=== PATIENT | female | born 1945 | race Hispanic/Latino ===

== ENCOUNTER 2017-11-23 06:21 | Emergency (ER) | payer MEDICARE ==
[2017-11-23 07:36] LABS: #Eosinphils 0.1 thou/uL (0.0-0.7); #Monocytes 0.5 thou/uL (0.11-0.59); #Neutrophils 2.4 thou/uL (1.40-6.50); %Basophils 0.3 % (0.0-1.0); %Eosinophils 1.7 % (0.0-10.0); %Lymphocytes 24.9 % (21.0-51.0); %Monocytes 12.1 % (0.0-10.0); Mean Platelet Volume 9.4 fL (7.4-10.4); Red Blood Cell (RBC) Count 4.18 mill/uL (4.20-5.40)
[2017-11-23 07:50] LABS: ALT (SGPT) 17 U/L (8-55); AST (SGOT) 20 U/L (5-34); Alkaline Phosphatase 76 U/L (40-150); Anion Gap 13 mmol/L (10-20); BUN (Urea Nitrogen) 13 mg/dL (9.8-20.1); Bilirubin, Total 0.2 mg/dL (0.2-1.2); Calc. Creatinine Clearance 0 mL/min (70-130); Calcium 9.1 mg/dL (7.8-10.44); Carbon Dioxide 24 mmol/L (23-31); Chloride 105 mmol/L (98-107); Estimated GFR-MDRD 76; Lipase 39 U/L (8-78)
[2017-11-23 07:54] LABS: Troponin I Less than 0.010 ng/mL (< 0.028)
--- NOTE | 2017-11-23 07:55 | RAD ---
SINGLE VIEW CHEST: Date: 11/23/17 COMPARISON: 05/08/17. HISTORY: Asthma exacerbation with dyspnea. FINDINGS: Single view of the chest shows a normal sized cardiomediastinal silhouette. There is no evidence of c onsolidation, mass, or pleural effusion. The bones are unremarkable. IMPRESSION: No evidence of acute cardiopulmonary disease. POS: [facility]
[2017-11-23] MEDS ORDERED: Dexamethasone 10 MG/ML VIAL ONE (08:48)
== END 2017-11-23 09:09 | disposition home or self-care (01) ==
LOC: ERS 06:21
DX: J45.901 Unspecified asthma with (acute) exacerbation (principal); E78.5 Hyperlipidemia, unspecified; E11.9 Type 2 diabetes mellitus without complications; I10 Essential (primary) hypertension; F41.9 Anxiety disorder, unspecified; F32.9 Major depressive disorder, single episode, unspecified; Z79.84 Long term (current) use of oral hypoglycemic drugs; Z79.899 Other long term (current) drug therapy
CPT/HCPCS: 36415; 71010; 80053; 82553; 83690; 83880; 84484; 85025; 85379; 93005; 96374; J1100; J7620

== ENCOUNTER 2018-05-20 10:51 | Outpatient (CLI) | payer MEDICARE | END 2018-05-20 10:52 | disposition home or self-care (01) | LOC: BICMAMMO 10:51 | PROVIDERS: ATTEND Family Medicine | DX: Z12.31 Encounter for screening mammogram for malignant neoplasm of breast (principal); Z80.3 Family history of malignant neoplasm of breast; R92.1 Mammographic calcification found on diagnostic imaging of breast | CPT/HCPCS: 77063; 77067 ==

== ENCOUNTER 2018-10-14 10:19 | Outpatient (CLI) | payer MEDICARE ==
--- NOTE | 2018-10-14 13:49 | ULT ---
RIGHT UPPER QUADRANT ULTRASOUND: HISTORY: Abdominal pain. TECHNIQUE: Multiple longitudinal and transverse images of the right upper quadrant of the abdomen are obtained u sing a Multi-Hertz curvilinear transducer. Real-time, color-flow, and spectral wave-form Doppler francoise lysis is used to evaluate the right upper quadrant of the abdomen. FINDINGS: Images demonstrate fibrofatty changes seen in the liver. There is mild hepatomegaly. No definite ev idence of hepatic parenchymal mass is seen. The gallbladder is within normal limits. No evidence of gallstones is seen. No evidence of gallbladder sludge is seen. The common bile duct is of normal s ize, measuring 5.4 mm. Normal hepatopetal flow is seen. The right kidney is unremarkable. Some small peripelvic cysts are seen. No evidence of other renal parenchymal mass is seen. The visualized portion of the pancreas is unremarkable. IMPRESSION: Peripelvic cysts; otherwise unremarkable right upper quadrant ultrasound. POS: [facility]
== END 2018-10-14 10:20 | disposition home or self-care (01) ==
LOC: BICULT 10:19
PROVIDERS: ATTEND Family Medicine
DX: R10.9 Unspecified abdominal pain (principal); N28.1 Cyst of kidney, acquired
CPT/HCPCS: 76705

== ENCOUNTER 2019-01-30 19:30 | Outpatient (CLI) | payer MEDICARE | END 2019-01-30 19:31 | disposition home or self-care (01) | LOC: SLEEPLAB 19:30 | PROVIDERS: ATTEND Family Medicine | DX: G47.33 Obstructive sleep apnea (adult) (pediatric) (principal); G47.10 Hypersomnia, unspecified; J98.9 Respiratory disorder, unspecified; R53.83 Other fatigue; E66.9 Obesity, unspecified; F41.9 Anxiety disorder, unspecified; G47.00 Insomnia, unspecified; F32.9 Major depressive disorder, single episode, unspecified; I10 Essential (primary) hypertension; E11.9 Type 2 diabetes mellitus without complications; G47.31 Primary central sleep apnea; Z68.38 Body mass index [BMI] 38.0-38.9, adult | CPT/HCPCS: 95810 ==

== ENCOUNTER 2019-03-03 09:30 | Outpatient (CLI) | payer MEDICARE ==
--- NOTE | 2019-03-03 12:41 | CT ---
CT ABDOMEN AND PELVIS WITH CONTRAST: COMPARISON: 01/01/2016. HISTORY: Abdominal pain and difficulty swallowing for months. TECHNIQUE: Multiple contiguous axial images were obtained in a CT of the abdomen and pelvis with contrast. Oral contrast was administered. Coronal reformats were performed. FINDINGS: There are bilateral renal parapelvic cysts in the hilar regions of the kidneys. The liver, gallbladd er, adrenal glands, spleen, and pancreas are unremarkable. No free air, free fluid, or stranding jameson nges are seen in the abdomen and pelvis. The reproductive organs are unremarkable. The large and small bowel are unremarkable. No abdominal or pelvic lymphadenopathy are seen. Atherosclerotic calcifications are seen in the aorta. There are mild degenerative changes in the spine. Atelectasis is seen in the posterior aspect of the right middle lobe. IMPRESSION: 1. No evidence of acute intraabdominal/pelvic abnormality. 2. Bilateral renal parapelvic cysts. POS: [facility]
[2019-03-03] MEDS ORDERED: ISOVUE-370 76%-LOCM 1 ML ONE (15:07)
== END 2019-03-03 09:31 | disposition home or self-care (01) ==
LOC: BICCT 09:30
PROVIDERS: ATTEND Family Medicine
DX: R10.9 Unspecified abdominal pain (principal); N28.1 Cyst of kidney, acquired
CPT/HCPCS: 74177; 82565; Q9966

== ENCOUNTER 2019-10-23 13:14 | Observation (INO) | payer MEDICARE ==
[2019-10-23] MEDS ORDERED: Aspirin Chewable 81 MG TAB ONE (13:35)
[2019-10-23] MEDS ORDERED: Nitroglycerin 2% Ointment 1 INCH/1 GM Packet ONE (13:35)
[2019-10-23 13:46] LABS: #Eosinphils 0.1 thou/uL (0.0-0.7); #Lymphocytes 1.5 thou/uL (1.20-3.40); #Monocytes 0.4 thou/uL (0.11-0.59); #Neutrophils 5.4 thou/uL (1.40-6.50); %Basophils 0.2 % (0.0-1.0); %Lymphocytes 20.6 % (21.0-51.0); %Monocytes 5.6 % (0.0-10.0); %Neutrophils 72.6 % (42.0-75.0); Hemoglobin 11.4 g/dL (12.0-16.0); Mean Corpuscular HGB CONC 33.6 g/dL (32.0-36.0); Mean Corpuscular Hemoglobin 28.7 pg (27.0-31.0); Mean Corpuscular Volume 85.4 fL (78.0-98.0); Mean Platelet Volume 9.1 fL (7.4-10.4); Platelet Count 189 thou/uL (130-400); RBC Distribution Width 13.2 % (11.5-14.5); Red Blood Cell (RBC) Count 3.97 mill/uL (4.20-5.40); White Blood Cell (WBC) Count 7.4 thou/uL (4.8-10.8)
--- NOTE | 2019-10-23 13:50 | RAD ---
PORTABLE CHEST: Date: 10/23/19 HISTORY: Shortness of breath and wheezing. COMPARISON: 11/23/17 exam. FINDINGS: Heart size enlarged. Atherosclerotic changes of aorta. Lungs show chronic change without focal infilt rates. IMPRESSION: Cardiomegaly with chronic appearing lung change. POS: [facility]
[2019-10-23 14:08] LABS: ALT (SGPT) 21 U/L (8-55); AST (SGOT) 22 U/L (5-34); Albumin 4.3 g/dL (3.4-4.8); Alkaline Phosphatase 91 U/L (40-110); Anion Gap 13 mmol/L (10-20); BUN (Urea Nitrogen) 16 mg/dL (9.8-20.1); Bilirubin, Total 0.3 mg/dL (0.2-1.2); CK (CPK) 52 U/L (29-168); Calc. Creatinine Clearance 0 mL/min (70-130); Calcium 9.3 mg/dL (7.8-10.44); Carbon Dioxide 25 mmol/L (23-31); Chloride 104 mmol/L (98-107); Estimated GFR-MDRD 63; Globulin 3.1 g/dL (2.4-3.5); Glucose 234 mg/dL (83-110); Lipase 31 U/L (8-78); Potassium 4.1 mmol/L (3.5-5.1); Protein, Total 7.4 g/dL (6.0-8.3); Sodium 138 mmol/L (136-145)
[2019-10-23] MEDS ORDERED: Acetaminophen 500 MG TAB ONE (14:46)
[2019-10-23] MEDS ORDERED: Acetaminophen 650 MG Suppository PR PRN (16:55)
[2019-10-23] MEDS ORDERED: Acetaminophen 325 MG TAB PO PRN (16:55)
[2019-10-23] MEDS ORDERED: Dextrose 50% Abboject 50 ML SYRINGE SLOW IVP PRN (16:57)
[2019-10-23] MEDS ORDERED: HumaLOG 300 UNITS/3 ML VIAL SC PRN ×2 (16:57)
[2019-10-23] MEDS ORDERED: Dextrose 5% in Water 1,000 ML IV PRN (16:57)
[2019-10-23 17:38] LABS: Lactic Acid 1.2 mmol/L (0.5-2.2)
--- NOTE | 2019-10-23 17:49 | HP ---
TIME OF ASSESSMENT: 1600 hours. PRIMARY CARE PHYSICIAN: Dr. Du. CHIEF COMPLAINT: Left arm and back pain. HISTORY OF PRESENT ILLNESS: Ms. Alexandra is a pleasant 74-year-old woman, who reports waking up with discomfort between her shoulder blades at 3 in the morning on . The patient describes it as a burning sensation, which she states it was a 5/10 in severity. It has remained constant since then and not made particularly worse with any movement. Denies any injuries or trauma the days prior to the onset of her pain. Denies taking any pain medications to help her pain. Does report having wheezing when she woke up from her sleep with discomfort. She suffers from asthma and has occasional flares of her asthma, but this is well managed with her home medications and her breathing has been better since then until today when she began once again to have shortness of breath and wheezing. Her symptoms have settled since receiving a nebulizer treatment in the emergency department. She states she tried nebs at home without any improvement. The patient reports some discomfort to the left shoulder that started this morning. She states that prompted her to call her primary care physician, who then advised her to go to the emergency department. The pain in her shoulder has been radiating at times to the left side of her jaw. Denies again any trauma or injuries or strenuous activity. States it is not worse with palpation or with movement of her arm. States it feels "like a cold sensation." She denies having any recent cough or hemoptysis. Denies having any fevers, chills, or sweats. No associated diaphoresis. No numbness or tingling in her left arm. All other review of systems is negative. In the emergency department, she underwent an EKG, which showed normal sinus rhythm with a heart rate of 85. No ST changes or T-wave abnormalities. She had a chest x-ray done, which showed chronic changes, otherwise no acute intrathoracic abnormalities. She did have cardiomegaly. The exam overall appeared stable compared to prior exam in October 2017. The patient underwent laboratory studies, showing a white count of 7.4, hemoglobin of 11.4, hematocrit 33.9, neutrophils 72.6. Potassium 4.1, BUN 16, creatinine 0.87, and GFR 63. LFTs unremarkable. CK 52. Initial troponin negative. BNP was normal at 48.6. Lipase also normal at 31. The patient was treated with 1 g of Tylenol Extra Strength and given 324 mg of aspirin as well as Nitro-Bid and a DuoNeb. She is being referred for ACS rule out. The Tylenol was given due to complaints of a headache after receiving the Nitro-Bid. PAST MEDICAL HISTORY: 1. Obesity. 2. Hyperlipidemia. 3. Asthma. 4. Diabetes mellitus, type 2. 5. Hypertension. 6. Depression. 7. Anxiety. PAST SURGICAL HISTORY: Tubal ligation. SOCIAL HISTORY: The patient denies any tobacco use, alcohol consumption, or illicit drug use. PHYSICAL EXAMINATION: GENERAL: The patient appears well developed, well nourished, and is in no acute distress. VITAL SIGNS: Temperature 97.8, pulse 78, blood pressure 139/61, respirations 16, and O2 saturation 98% on room air. HEENT: Normocephalic and atraumatic. Pupils are equal, round, and reactive to light. Sclerae without icterus. Oropharynx is clear. NECK: Supple without lymphadenopathy. LUNGS: Clear to auscultation bilaterally without wheezes, rales, or rhonchi. CARDIAC: Regular rate and rhythm without audible murmurs, rubs, or gallops. ABDOMEN: Soft, nontender, nondistended. Obese. No guarding or rigidity. No renal angle tenderness. MUSCULOSKELETAL: The patient with discomfort on palpation of the area below the left shoulder blade. No limited range of motion of the left upper extremity. No reproducible pain with palpation of the left anterior shoulder. No anterior chest wall tenderness. Lower legs without any edema or swelling. Pedal pulses strong and equal bilaterally. SKIN: Warm and dry. INVESTIGATIONS: As mentioned above in HPI. IMPRESSION AND PLAN: Ms. Alexandra is a pleasant 74-year-old woman, who has been referred for management of the followin. Acute coronary syndrome rule out. The patient reports having 5/10 pain in her back between the shoulder blades, which on exam is localized to below the left shoulder blade and tender to palpation. It could be musculoskeletal in nature. However, given her comorbidities, she is being referred for acute coronary syndrome rule out. EKG unremarkable. Chest x-ray showed cardiomegaly and chronic changes and BNP was normal. Initial troponin negative. We will continue to trend troponins. The patient does not follow with a flow worker and has not had a stress test in the last year. Her last stress test was done on December 2015, at which time she had an EF of 54% and normal findings. We will plan to schedule stress test for the morning. 2. Shortness of breath. The patient states it is likely associated with her asthma, which often flares. We will obtain D-dimer as she has been sedentary. If elevated, would need a CT angiogram to rule out pulmonary embolism. If D-dimer negative, we will plan to obtain a CT of the chest as the patient insists this pain is similar to what she has had with pneumonia in the past. Continue DuoNeb p.r.n. 3. Hypertension. Monitor blood pressure and resume home medications. 4. Hyperlipidemia. Resume home medications once verified. 5. Diabetes mellitus. We will initiate insulin sliding scale. Monitor blood glucose. Hold metformin for now. 6. Code status, full. Surrogate decision maker is her daughter, Lisandra Arriaga. The patient's case was discussed with attending, who agrees with plan of care as described above. Job ID: [id number]
[2019-10-23 18:23] VITALS: BMI 37.3
[2019-10-23] MEDS ORDERED: Pravastatin Sodium 20 MG TAB PO SCH (21:00)
[2019-10-23] MEDS: Famotidine 20 MG TAB PO SCH (21:08)
[2019-10-23 21:37] LABS: Bacteria/HPF None Seen HPF (None Seen); Bilirubin Negative (Negative); Blood, Urine Negative (Negative); Clarity Clear (Clear); Glucose, Urine (Dipstick) 70 mg/dL (Negative); Leukocyte 250 Leu/uL (Negative); Nitrite Negative (Negative); Protein, Urine (Dipstick) Negative (Neg-Trace); Urobilinogen Normal mg/dL (Less than 2)
[2019-10-24 05:01] LABS: #Basophils 0.1 thou/uL (0.0-0.2); #Eosinphils 0.1 thou/uL (0.0-0.7); #Lymphocytes 1.7 thou/uL (1.20-3.40); #Monocytes 0.5 thou/uL (0.11-0.59); #Neutrophils 4.3 thou/uL (1.40-6.50); %Basophils 1.4 % (0.0-1.0); %Eosinophils 2.1 % (0.0-10.0); %Lymphocytes 25.7 % (21.0-51.0); %Neutrophils 63.8 % (42.0-75.0); Hemoglobin 10.1 g/dL (12.0-16.0); Mean Corpuscular HGB CONC 33.5 g/dL (32.0-36.0); Mean Corpuscular Hemoglobin 28.8 pg (27.0-31.0); Mean Platelet Volume 9.4 fL (7.4-10.4); Platelet Count 165 thou/uL (130-400); RBC Distribution Width 13.2 % (11.5-14.5); Red Blood Cell (RBC) Count 3.52 mill/uL (4.20-5.40); White Blood Cell (WBC) Count 6.8 thou/uL (4.8-10.8)
[2019-10-24 05:23] LABS: Anion Gap 11 mmol/L (10-20); BUN (Urea Nitrogen) 16 mg/dL (9.8-20.1); Calc. Creatinine Clearance 101 mL/min (70-130); Calcium 8.8 mg/dL (7.8-10.44); Carbon Dioxide 25 mmol/L (23-31); Chloride 107 mmol/L (98-107); Estimated GFR-MDRD 78; Glucose 147 mg/dL (83-110); Potassium 3.6 mmol/L (3.5-5.1); Sodium 139 mmol/L (136-145)
[2019-10-24] MEDS ORDERED: Mometasone/Formoterol 120 PUFF INHALER INH SCH (06:30)
[2019-10-24] MEDS: Famotidine 20 MG TAB PO SCH (08:42)
[2019-10-24] MEDS ORDERED: Losartan 25 MG TAB PO SCH (09:00)
[2019-10-24] MEDS ORDERED: Amlodipine 5 MG TAB PO SCH (09:00)
[2019-10-24] MEDS ORDERED: Regadenoson 0.4 MG/5 ML SYRINGE ONE (12:00)
[2019-10-24 12:32] VITALS: BP 155/69; TEMP 97.6
--- NOTE | 2019-10-24 13:04 | NM ---
EXAM: Nuclear medicine stress only cardiac perfusion examination with ejection fraction HISTORY: Chest pain TECHNIQUE: Stress images: 32.90 mCi of technetium 9M sestamibi; COMPARISON: None FINDINGS: Tomographic images: No myocardial perfusion defects. Gated images: Normal wall motion and thickening. The estimated LVEF of 73%. IMPRESSION: Normal stress only myocardial perfusion evaluation.
--- NOTE | 2019-10-25 03:50 | DIS ---
DATE OF ADMISSION: 10/23/2019 DATE OF DISCHARGE: 10/24/2019 PRIMARY CARE PHYSICIAN: Dr. Du. DISCHARGE DIAGNOSES: 1. Atypical chest pain, likely musculoskeletal in nature. 2. Benign essential hypertension. 3. Hyperlipidemia. 4. Diabetes mellitus type 2. HOSPITAL COURSE: This is a 74-year-old female admitted to the hospitalist Services secondary to complaints of chest pain radiating to her shoulder blades that started at 3 in the morning on , past week. The patient tried to tough it up on her own according to her statement and at this point of time was evaluated with stress test evaluation and initial nuclear scan evaluation did not show any evidence of reversible ischemia. The patient troponins and serial EKGs did not show any evidence of acuity and was chest pain-free during her course of hospitalization and has been advised for discharge. The patient's ejection fraction on the stress test was around 73%. The patient was hemodynamically optimized on x-ray and advised to follow up with primary care physician with the reports. Also, there was a followup advised for the patient with Cardiology Services. Patient was hemodynamically optimized on discharge. DISPOSITION: Discharged home. PHYSICAL EXAMINATION: CVS: S1, S2. CHEST: Bilateral air entry present. ABDOMEN: Soft. EXTREMITIES: No cyanosis. ALLERGIES: CAFFEINE, INFLUENZA VIRUS VACCINE, SULFA. ACTIVITY: As tolerated with fall precautions. DIET: Heart healthy diet. DISCHARGE PLAN: Patient has been advised and educated about the diagnosis, treatment and follow up. No change in medications have been noted to the patient. At this point of time, the patient was hemodynamically optimized on discharge. Job ID: [id number]
--- NOTE | 2019-10-27 16:14 | EKG ---
Test Reason : Blood Pressure : / mmHG Vent. Rate : 085 BPM Atrial Rate : 085 BPM P-R Int : 158 ms QRS Dur : 092 ms QT Int : 378 ms P-R-T Axes : 071 080 060 degrees QTc Int : 449 ms Normal sinus rhythm Normal ECG Confirmed by CHELY URIBE, FANNY ([id number]), newspaper copy editor SAMY MATIAS ([id number]) on 10/27/2019 4:12:57 PM Referred By: Confirmed By:FANNY MO MD
== END 2019-10-24 14:30 | disposition home or self-care (01) ==
LOC: ERS 13:14 → 2SW 18:12
PROVIDERS: ADMIT Internal Medicine; ATTEND Internal Medicine
DX: R07.89 Other chest pain (principal); I10 Essential (primary) hypertension; E11.9 Type 2 diabetes mellitus without complications; E78.5 Hyperlipidemia, unspecified; J45.909 Unspecified asthma, uncomplicated; F41.9 Anxiety disorder, unspecified; F32.9 Major depressive disorder, single episode, unspecified; E66.9 Obesity, unspecified; Z68.37 Body mass index [BMI] 37.0-37.9, adult; Z79.84 Long term (current) use of oral hypoglycemic drugs; Z79.899 Other long term (current) drug therapy; Z88.2 Allergy status to sulfonamides; Z88.7 Allergy status to serum and vaccine; Z91.018 Allergy to other foods
CPT/HCPCS: 71045; 78452; 80048; 80053; 82550; 82962 ×2; 83605; 83690; 83880; 84145; 84484 ×2; 85025 ×2; 85379; 93005; 93017; 94640 ×2; 96360; 99285; A9500; G0378 ×3; 36415; 36416; 81003; 81015; J0280; J2785; J7620

== ENCOUNTER 2020-06-26 16:38 | Emergency (ER) | payer MEDICARE, OTHER ==
[2020-06-27 14:04] LABS: SARS-CoV-2 MS2 Positive; SARS-CoV-2 N Gene Negative; SARS-CoV-2 S Gene Negative; SARS-CoV-2 by NAA Not Detected (NotDetected); SARS-CoV-2 orf1ab Negative
== END 2020-06-26 16:57 | disposition home or self-care (01) ==
LOC: ERS 16:38
DX: Z20.828 Contact with and (suspected) exposure to other viral communicable diseases (principal); E78.5 Hyperlipidemia, unspecified; J45.909 Unspecified asthma, uncomplicated; E11.9 Type 2 diabetes mellitus without complications; F41.9 Anxiety disorder, unspecified; F32.9 Major depressive disorder, single episode, unspecified
CPT/HCPCS: 87635; 99283; U0003

== ENCOUNTER 2021-01-27 13:09 | Outpatient (CLI) | payer MEDICARE ==
--- NOTE | 2021-01-27 13:38 | RAD ---
EXAM: Chest PA and lateral: HISTORY: Chest pain. COMPARISON: 07/17/2020 FINDINGS: Heart: Normal cardiac silhouette Aorta: Atherosclerosis Pulmonary vessels: Normal caliber Costophrenic angles: Costophrenic angles are clear. Lungs: Opacification in the right lower lobe Pneumothorax: No pneumothorax Osseous structures: No osseous abnormalities IMPRESSION: Right lower lobe opacification. Correlate for pneumonia.
--- NOTE | 2021-01-27 13:38 | RAD ---
Cervical spine 4 views: 01/27/2021 COMPARISON: 04/12/2019 HISTORY: Cervical spine pain FINDINGS: Stable degenerative changes of the atlantoaxial interspace. Multilevel upper and mid cervical spine facet hypertrophy. There is disc space narrowing with degenerative endplate change and anterior osteophyte formation at C5-6. The swimmer's lateral view demonstrates anterolisthesis at C4-5 measuring 3-4 mm. Open-mouth odontoid view demonstrates significant joint space narrowing at the atlantoaxial interspace with subchondral sclerosis and osteophytosis. The frontal examination demonstrates prominent multilevel bilateral facet and uncovertebral osteophyt e formation throughout the cervical spine, most prominent on the left at C2-3 and C3-4 and on the right at C4-5 and C5-6. IMPRESSION: Prominent multilevel cervical spine degenerative change.
== END 2021-01-27 13:10 | disposition home or self-care (01) ==
LOC: BICRAD 13:09
PROVIDERS: ATTEND Family Medicine
DX: M54.2 Cervicalgia (principal); R07.1 Chest pain on breathing; M47.812 Spondylosis without myelopathy or radiculopathy, cervical region; R91.8 Other nonspecific abnormal finding of lung field
CPT/HCPCS: 71046; 72040

== ENCOUNTER 2021-02-01 20:24 | Emergency (ER) | payer MEDICARE ==
[2021-02-01 21:12] LABS: #Basophils 0.1 thou/uL (0.0-0.2); #Eosinphils 0.1 thou/uL (0.0-0.7); #Lymphocytes 2.2 thou/uL (1.20-3.40); #Monocytes 0.5 thou/uL (0.11-0.59); #Neutrophils 5.5 thou/uL (1.40-6.50); %Basophils 0.9 % (0.0-1.0); %Eosinophils 1.5 % (0.0-10.0); %Lymphocytes 26.1 % (21.0-51.0); %Monocytes 5.9 % (0.0-10.0); %Neutrophils 65.6 % (42.0-75.0); Hemoglobin 11.9 g/dL (12.0-16.0); Mean Corpuscular HGB CONC 33.6 g/dL (32.0-36.0); Mean Corpuscular Hemoglobin 29.3 pg (27.0-31.0); Mean Corpuscular Volume 87.1 fL (78.0-98.0); Mean Platelet Volume 9.2 fL (7.4-10.4); Platelet Count 208 thou/uL (130-400); RBC Distribution Width 12.8 % (11.5-14.5); Red Blood Cell (RBC) Count 4.05 mill/uL (4.20-5.40); White Blood Cell (WBC) Count 8.4 thou/uL (4.8-10.8)
[2021-02-01 21:30] LABS: ALT (SGPT) 14 U/L (8-55); AST (SGOT) 19 U/L (5-34); Albumin 4.2 g/dL (3.4-4.8); Alkaline Phosphatase 108 U/L (40-110); Anion Gap 19 mmol/L (10-20); BUN (Urea Nitrogen) 20 mg/dL (9.8-20.1); Bilirubin, Total 0.2 mg/dL (0.2-1.2); Calc. Creatinine Clearance 0 mL/min (70-130); Calcium 9.2 mg/dL (7.8-10.44); Carbon Dioxide 21 mmol/L (23-31); Chloride 103 mmol/L (98-107); Globulin 3.6 g/dL (2.4-3.5); Glucose 209 mg/dL (83-110); Potassium 3.7 mmol/L (3.5-5.1); Protein, Total 7.8 g/dL (5.8-8.1); Sodium 139 mmol/L (136-145)
[2021-02-01] MEDS ORDERED: Ketorolac Tromethamine 30 MG/ML VIAL ONE (23:38)
[2021-02-01] MEDS ORDERED: Famotidine/PF 20 mg/2ml Vial ONE (23:47)
[2021-02-01 23:53] LABS: Troponin I 0.012 ng/mL (< 0.028)
== END 2021-02-02 00:07 | disposition home or self-care (01) ==
LOC: ERS 20:24
DX: M54.6 Pain in thoracic spine (principal); E78.5 Hyperlipidemia, unspecified; J45.909 Unspecified asthma, uncomplicated; E11.9 Type 2 diabetes mellitus without complications; I10 Essential (primary) hypertension
CPT/HCPCS: 36415; 71046; 80053; 84484; 85025; 93005; 94640; 96374; 96375; J1885; J7620; S0028

== ENCOUNTER 2021-06-16 03:15 | Emergency (ER) | payer MEDICARE | END 2021-06-16 05:36 | disposition home or self-care (01) | LOC: ERS 03:15 | DX: I11.0 Hypertensive heart disease with heart failure (principal); I50.9 Heart failure, unspecified; E11.9 Type 2 diabetes mellitus without complications; E78.5 Hyperlipidemia, unspecified; J45.909 Unspecified asthma, uncomplicated; Z79.84 Long term (current) use of oral hypoglycemic drugs; Z79.899 Other long term (current) drug therapy | CPT/HCPCS: 71045; 80053; 83880; 84484; 85025; 93005; 94664 ==

== ENCOUNTER 2022-01-20 02:31 | Emergency (ER) | payer MEDICARE ==
[2022-01-20] MEDS ORDERED: Aspirin 325 MG TAB ONE (02:53)
[2022-01-20 03:22] LABS: #Eosinphils 0.1 thou/uL (0.0-0.7); #Lymphocytes 2.4 thou/uL (1.20-3.40); #Monocytes 0.5 thou/uL (0.11-0.59); #Neutrophils 5.4 thou/uL (1.40-6.50); %Basophils 0.4 % (0.0-1.0); %Eosinophils 1.6 % (0.0-10.0); %Lymphocytes 27.8 % (21.0-51.0); %Monocytes 6.2 % (0.0-10.0); %Neutrophils 64.1 % (42.0-75.0); Hemoglobin 11.9 g/dL (12.0-16.0); Mean Corpuscular HGB CONC 33.1 g/dL (32.0-36.0); Mean Corpuscular Hemoglobin 28.7 pg (27.0-31.0); Mean Corpuscular Volume 86.6 fL (78.0-98.0); Platelet Count 209 thou/uL (130-400); RBC Distribution Width 13.3 % (11.5-14.5); Red Blood Cell (RBC) Count 4.13 mill/uL (4.20-5.40); White Blood Cell (WBC) Count 8.4 thou/uL (4.8-10.8)
[2022-01-20 03:34] LABS: ALT (SGPT) 19 U/L (8-55); AST (SGOT) 22 U/L (5-34); Albumin 4.3 g/dL (3.4-4.8); Alkaline Phosphatase 98 U/L (40-110); Anion Gap 16 mmol/L (10-20); BUN (Urea Nitrogen) 21 mg/dL (9.8-20.1); Bilirubin, Total 0.4 mg/dL (0.2-1.2); Calc. Creatinine Clearance 0 mL/min (70-130); Calcium 9.5 mg/dL (7.8-10.44); Carbon Dioxide 24 mmol/L (23-31); Chloride 103 mmol/L (98-107); Globulin 2.7 g/dL (2.4-3.5); Glucose 134 mg/dL (83-110); Potassium 3.8 mmol/L (3.5-5.1); Sodium 139 mmol/L (136-145)
[2022-01-20 06:09] LABS: Troponin I Less than 0.010 ng/mL (< 0.028)
== END 2022-01-20 06:40 | disposition home or self-care (01) ==
LOC: ERS 02:31
DX: R07.89 Other chest pain (principal); E78.5 Hyperlipidemia, unspecified; E11.9 Type 2 diabetes mellitus without complications; I10 Essential (primary) hypertension; Z79.899 Other long term (current) drug therapy
CPT/HCPCS: 36415; 71045; 80053; 84484; 85025; 93005; 94760

== ENCOUNTER 2022-05-01 04:26 | Emergency (ER) | payer MEDICARE ==
[2022-05-01] MEDS ORDERED: predniSONE 20 MG TAB ONE (04:59)
[2022-05-01 05:44] LABS: #Eosinphils 0.4 thou/uL (0.0-0.7); #Lymphocytes 2.4 thou/uL (1.20-3.40); #Monocytes 0.6 thou/uL (0.11-0.59); #Neutrophils 4.4 thou/uL (1.40-6.50); %Basophils 0.6 % (0.0-1.0); %Eosinophils 5.1 % (0.0-10.0); %Lymphocytes 30.4 % (21.0-51.0); %Monocytes 7.4 % (0.0-10.0); %Neutrophils 56.5 % (42.0-75.0); Hemoglobin 11.9 g/dL (12.0-16.0); Mean Corpuscular HGB CONC 32.1 g/dL (32.0-36.0); Mean Corpuscular Hemoglobin 28.2 pg (27.0-31.0); Mean Corpuscular Volume 87.9 fL (78.0-98.0); Mean Platelet Volume 8.8 fL (7.4-10.4); Platelet Count 193 thou/uL (130-400); RBC Distribution Width 13.5 % (11.5-14.5); Red Blood Cell (RBC) Count 4.23 mill/uL (4.20-5.40); White Blood Cell (WBC) Count 7.8 thou/uL (4.8-10.8)
[2022-05-01 05:58] LABS: ALT (SGPT) 12 U/L (8-55); AST (SGOT) 16 U/L (5-34); Albumin 3.9 g/dL (3.4-4.8); Alkaline Phosphatase 118 U/L (40-110); Anion Gap 17 mmol/L (10-20); BUN (Urea Nitrogen) 19 mg/dL (9.8-20.1); Bilirubin, Total 0.3 mg/dL (0.2-1.2); Calc. Creatinine Clearance 0 mL/min (70-130); Calcium 9.2 mg/dL (7.8-10.44); Carbon Dioxide 25 mmol/L (23-31); Chloride 102 mmol/L (98-107); Globulin 3.4 g/dL (2.4-3.5); Glucose 141 mg/dL (83-110); Potassium 4.2 mmol/L (3.5-5.1); Protein, Total 7.3 g/dL (5.8-8.1); Sodium 140 mmol/L (136-145)
== END 2022-05-01 06:57 | disposition home or self-care (01) ==
LOC: ERS 04:26
DX: J45.901 Unspecified asthma with (acute) exacerbation (principal); I10 Essential (primary) hypertension; E78.5 Hyperlipidemia, unspecified; E11.9 Type 2 diabetes mellitus without complications
CPT/HCPCS: 71045; 80053; 83880; 84484; 85025; 93005; J7512; J7620

== ENCOUNTER 2022-05-07 12:18 | Outpatient (CLI) | payer MEDICARE | END 2022-05-07 12:19 | disposition home or self-care (01) | LOC: BICMAMMO 12:18 | PROVIDERS: ATTEND Family Medicine | DX: Z12.31 Encounter for screening mammogram for malignant neoplasm of breast (principal); Z13.820 Encounter for screening for osteoporosis; M81.0 Age-related osteoporosis without current pathological fracture; M85.851 Other specified disorders of bone density and structure, right thigh; Z80.3 Family history of malignant neoplasm of breast | CPT/HCPCS: 77063; 77067; 77080 ==

== ENCOUNTER 2023-05-13 12:55 | Outpatient (CLI) | payer OTHER ==
[2023-05-13 14:23] LABS: #Eosinphils 0.2 10x3/uL (0.0-0.5); #Monocytes 0.6 10x3/uL (0.0-1.1); #Neutrophils 5.1 10x3/uL (1.5-8.4); %Basophils 0.5 % (0.0-2.0); %Eosinophils 2.6 % (0.0-6.0); %Lymphocytes 26.6 % (18.0-47.0); %Monocytes 7.6 % (0.0-10.0); %Neutrophils 61.8 % (40.0-75.0); Hemoglobin 11.8 g/dL (12.0-15.5); Mean Corpuscular Hemoglobin 26.8 pg (27.0-33.0); Mean Corpuscular Volume 83.7 fl (81.6-98.3); Mean Platelet Volume 10.9 fl (7.4-10.4); Platelet Count 252 10x3/uL (150-450); RBC Distribution Width 13.7 % (11.5-14.5); Red Blood Cell (RBC) Count 4.41 10x6/uL (3.90-5.03); White Blood Cell (WBC) Count 8.2 10x3/uL (3.5-10.5)
[2023-05-13 14:30] LABS: Anion Gap 17 mmol/L (10-20); BUN (Urea Nitrogen) 15 mg/dL (9.8-20.1); Calc. Creatinine Clearance 0 mL/min (70-130); Calcium 9.9 mg/dL (7.8-10.44); Carbon Dioxide 23 mmol/L (23-31); Chloride 103 mmol/L (98-107); Estimated GFR 72; Glucose 201 mg/dL (83-110); Potassium 4.1 mmol/L (3.5-5.1); Prothrombin Time 10.3 sec (9.5-12.1); Sodium 139 mmol/L (136-145)
== END 2023-05-13 12:56 | disposition home or self-care (01) ==
LOC: LABBT 12:55
PROVIDERS: ATTEND Orthopaedic Surgery
DX: Z01.818 Encounter for other preprocedural examination (principal); M17.11 Unilateral primary osteoarthritis, right knee
CPT/HCPCS: 80048; 85025; 85610; 87081; 93005; 93010

== ENCOUNTER 2023-05-31 13:15 | Inpatient (IN) | payer OTHER ==
[2023-05-31] MEDS ORDERED: Nitroglycerin 0.4 MG TAB 1 EACH ONE (14:48)
[2023-05-31] MEDS ORDERED: Aspirin Chewable 81 MG TAB ONE (14:48)
[2023-05-31 14:52] LABS: #Eosinphils 0.1 thou/uL (0.0-0.7); #Monocytes 0.4 thou/uL (0.11-0.59); #Neutrophils 4.2 thou/uL (1.40-6.50); %Basophils 0.5 % (0.0-1.0); %Eosinophils 1.4 % (0.0-10.0); %Lymphocytes 18.2 % (21.0-51.0); %Monocytes 7.3 % (0.0-10.0); %Neutrophils 70.9 % (42.0-75.0); Hemoglobin 10.5 g/dL (12.0-16.0); Mean Corpuscular HGB CONC 31.7 g/dL (32.0-36.0); Mean Corpuscular Hemoglobin 27.6 pg (27.0-31.0); Mean Corpuscular Volume 86.9 fl (78.0-98.0); Mean Platelet Volume 10.2 fL (7.4-10.4); Platelet Count 303 10x3/uL (130-400); RBC Distribution Width 14.8 % (11.5-14.5); Red Blood Cell (RBC) Count 3.81 mill/uL (4.20-5.40); White Blood Cell (WBC) Count 5.9 10x3/uL (4.8-10.8)
[2023-05-31 15:20] LABS: ALT (SGPT) 15 U/L (8-55); AST (SGOT) 26 U/L (5-34); Alkaline Phosphatase 75 U/L (40-110); Anion Gap 21 mmol/L (10-20); BUN (Urea Nitrogen) 14 mg/dL (9.8-20.1); Bilirubin, Total 0.6 mg/dL (0.2-1.2); Calc. Creatinine Clearance 0 mL/min (70-130); Calcium 9.9 mg/dL (7.8-10.44); Carbon Dioxide 21 mmol/L (23-31); Chloride 101 mmol/L (98-107); Estimated GFR 74; Globulin 2.9 g/dL (2.4-3.5); Glucose 150 mg/dL (83-110); Lipase 17 U/L (8-78); Potassium 3.9 mmol/L (3.5-5.1); Protein, Total 6.9 g/dL (5.8-8.1); Sodium 139 mmol/L (136-145)
[2023-05-31] MEDS ORDERED: Senokot S 8.6-50 MG TAB PO PRN (16:45)
[2023-05-31] MEDS ORDERED: Acetaminophen 325 MG TAB PO PRN (16:45)
[2023-05-31] MEDS ORDERED: Bisacodyl 5 MG TAB PO PRN (16:45)
[2023-05-31] MEDS ORDERED: Ondansetron PF 4 MG/2 ML Vial IVP PRN (16:45)
[2023-05-31] MEDS ORDERED: HumaLOG 300 UNITS/3 ML VIAL SC PRN (16:50)
[2023-05-31] MEDS ORDERED: Dextrose 50% Abboject 50 ML SYRINGE SLOW IVP PRN (16:50)
[2023-05-31] MEDS ORDERED: Glucagon 1 MG/ML KIT IM PRN (16:50)
[2023-05-31] MEDS ORDERED: Dextrose 5% in Water 1,000 ML IV PRN (16:50)
[2023-05-31] MEDS: HYDROcodone/Acetaminophen 5/325 mg Tablet PO PRN (21:48)
[2023-05-31] MEDS ORDERED: Lansoprazole 15 MG/5 ML (BATCHED)UDCUP PER TUBE SCH (22:15)
[2023-05-31 22:46] VITALS: BMI 36.3
[2023-05-31] MEDS: Sodium Chloride 0.9% 1,000 ML IV SCH (22:47)
[2023-05-31] MEDS ORDERED: Albuterol 200 PUFF (6.7GM INHALER) INH PRN (23:25)
[2023-05-31] MEDS ORDERED: Guaifenesin DM 100-10/5 ML UDCUP PO PRN (23:27)
[2023-05-31] MEDS ORDERED: guaiFENesin ER 600 MG TAB PO SCH (23:30)
[2023-06-01] MEDS: Sodium Chloride 0.9% 1,000 ML IV SCH (06:06)
[2023-06-01 06:18] LABS: #Eosinphils 0.2 thou/uL (0.0-0.7); #Monocytes 0.5 thou/uL (0.11-0.59); #Neutrophils 3.4 thou/uL (1.40-6.50); %Basophils 0.4 % (0.0-1.0); %Eosinophils 4.5 % (0.0-10.0); %Lymphocytes 20.9 % (21.0-51.0); %Monocytes 9.8 % (0.0-10.0); %Neutrophils 63.3 % (42.0-75.0); Hemoglobin 9.3 g/dL (12.0-16.0); Mean Platelet Volume 10.2 fL (7.4-10.4); Platelet Count 268 10x3/uL (130-400); RBC Distribution Width 15.1 % (11.5-14.5); Red Blood Cell (RBC) Count 3.45 mill/uL (4.20-5.40); White Blood Cell (WBC) Count 5.3 10x3/uL (4.8-10.8)
[2023-06-01 06:46] LABS: Anion Gap 17 mmol/L (10-20); BUN (Urea Nitrogen) 11 mg/dL (9.8-20.1); Calc. Creatinine Clearance 81 mL/min (70-130); Calcium 9.2 mg/dL (7.8-10.44); Carbon Dioxide 24 mmol/L (23-31); Chloride 102 mmol/L (98-107); Estimated GFR 75; Glucose 125 mg/dL (83-110); Potassium 3.5 mmol/L (3.5-5.1); Sodium 139 mmol/L (136-145)
[2023-06-01] MEDS ORDERED: metFORMIN 500 MG TAB PO SCH (08:00)
[2023-06-01] MEDS: Aspirin 81 mg Enteric Coated Tablet PO SCH (08:41)
[2023-06-01] MEDS: Carvedilol 6.25 MG TAB PO SCH ×2 (08:41→17:25)
[2023-06-01] MEDS ORDERED: Lansoprazole 15 MG/5 ML (BATCHED)UDCUP PER TUBE SCH (09:00)
[2023-06-01] MEDS ORDERED: guaiFENesin ER 600 MG TAB PO SCH (09:00)
[2023-06-01] MEDS ORDERED: Benzocaine/Menthol 1 LOZ LOZ PO PRN (10:09)
[2023-06-01] MEDS: HYDROcodone/Acetaminophen 5/325 mg Tablet PO PRN (12:06)
[2023-06-01] MEDS ORDERED: Mag-Al 1200 mg/1200 mg/30 ML UDCUP PO PRN (14:56)
[2023-06-01] MEDS ORDERED: Potassium Bicarbonate/Cit Ac 20 MEQ TAB PO SCH (15:00)
[2023-06-01] MEDS: Calcium Carbonate 500 MG ChewTAB PO PRN ×2 (15:11→20:01)
[2023-06-01] MEDS ORDERED: NS 0.9% w/ 40 MEQ KCL 1,000 ML IV SCH (15:15)
[2023-06-01] MEDS: Pantoprazole 40 MG VIAL IVP SCH (20:02)
[2023-06-02] MEDS: Calcium Carbonate 500 MG ChewTAB PO PRN (00:37)
[2023-06-02] MEDS: Carvedilol 6.25 MG TAB PO SCH (05:52)
[2023-06-02] MEDS: Aspirin 81 mg Enteric Coated Tablet PO SCH (08:26)
[2023-06-02] MEDS: Pantoprazole 40 MG VIAL IVP SCH (08:27)
[2023-06-02] MEDS ORDERED: Pantoprazole 40 MG VIAL IVP SCH (09:00)
[2023-06-02] MEDS ORDERED: Ipratropium/Albuterol 3 ML NEB ONE (10:31)
[2023-06-02] MEDS ORDERED: Lidocaine 1% PF 5 ML VIAL ONE (11:01)
[2023-06-02] MEDS ORDERED: PROPOFOL 200 MG/20 ML VIAL ONE (11:01)
[2023-06-02 12:37] VITALS: BP 136/74; TEMP 98.2
== END 2023-06-02 15:59 | DRG 392 ==
LOC: ERS 13:15 → T4-B 16:45 → OBSVTOIN 06-02 12:08
PROVIDERS: ADMIT Hospitalist; ATTEND Internal Medicine
PROC: 0D718ZZ Dilation of Upper Esophagus, Via Natural or Artificial Opening Endoscopic (ICD-10-PCS; principal; 2023-06-02)
DX: K22.2 Esophageal obstruction (principal); E78.5 Hyperlipidemia, unspecified; K21.9 Gastro-esophageal reflux disease without esophagitis; Z96.651 Presence of right artificial knee joint; E66.01 Morbid (severe) obesity due to excess calories; N18.2 Chronic kidney disease, stage 2 (mild); E11.22 Type 2 diabetes mellitus with diabetic chronic kidney disease; I12.9 Hypertensive chronic kidney disease with stage 1 through stage 4 chronic kidney disease, or unspecified chronic kidney disease; Z88.8 Allergy status to other drugs, medicaments and biological substances; Z88.2 Allergy status to sulfonamides; Z88.7 Allergy status to serum and vaccine; Z91.018 Allergy to other foods; Z79.51 Long term (current) use of inhaled steroids; Z79.899 Other long term (current) drug therapy; Z79.82 Long term (current) use of aspirin; Z98.51 Tubal ligation status; Z68.36 Body mass index [BMI] 36.0-36.9, adult
CPT/HCPCS: 36415; 36416; 70490; 71045; 80048; 80053; 83690; 83880; 84484; 85025; 93005; 94760; 96372; 96374; 96376; C9113; G0378; J1650; J2704; J3480; J7050; J7620

== ENCOUNTER 2023-06-11 06:22 | Emergency (ER) | payer OTHER ==
[2023-06-11] MEDS ORDERED: Albuterol 2.5 MG/0.5 ML NEB ONE (06:42)
[2023-06-11] MEDS ORDERED: Ipratropium/Albuterol 3 ML NEB ONE (06:42)
[2023-06-11 07:19] LABS: #Eosinphils 0.1 thou/uL (0.0-0.7); #Monocytes 0.7 thou/uL (0.11-0.59); #Neutrophils 3.9 thou/uL (1.40-6.50); %Basophils 0.5 % (0.0-1.0); %Eosinophils 1.7 % (0.0-10.0); %Lymphocytes 24.8 % (21.0-51.0); %Neutrophils 61.5 % (42.0-75.0); Hemoglobin 11.2 g/dL (12.0-16.0); Mean Corpuscular HGB CONC 31.6 g/dL (32.0-36.0); Mean Corpuscular Hemoglobin 27.1 pg (27.0-31.0); Mean Corpuscular Volume 85.5 fl (78.0-98.0); Mean Platelet Volume 11.6 fL (7.4-10.4); Platelet Count 233 10x3/uL (130-400); Red Blood Cell (RBC) Count 4.14 mill/uL (4.20-5.40); White Blood Cell (WBC) Count 6.3 10x3/uL (4.8-10.8)
[2023-06-11 07:36] LABS: SARS-CoV-2 NAA Rapid Test Not Detected (NotDetected)
[2023-06-11 07:44] LABS: ALT (SGPT) 14 U/L (8-55); AST (SGOT) 24 U/L (5-34); Albumin 4.1 g/dL (3.4-4.8); Alkaline Phosphatase 91 U/L (40-110); Anion Gap 20 mmol/L (10-20); BUN (Urea Nitrogen) 19 mg/dL (9.8-20.1); Bilirubin, Total 0.5 mg/dL (0.2-1.2); Calc. Creatinine Clearance 0 mL/min (70-130); Calcium 10.4 mg/dL (7.8-10.44); Carbon Dioxide 19 mmol/L (23-31); Chloride 107 mmol/L (98-107); Estimated GFR 37; Globulin 3.2 g/dL (2.4-3.5); Glucose 131 mg/dL (83-110); Potassium 3.7 mmol/L (3.5-5.1); Protein, Total 7.3 g/dL (5.8-8.1); Sodium 142 mmol/L (136-145)
[2023-06-11] MEDS ORDERED: cefTRIAXone (ROCEPHIN) 1 GM VIAL ONE (08:08)
[2023-06-11] MEDS ORDERED: Sodium Chloride 0.9% 100 ML ONE (08:08)
== END 2023-06-11 08:23 | disposition home or self-care (01) ==
LOC: ERS 06:22
DX: J18.9 Pneumonia, unspecified organism (principal); E78.5 Hyperlipidemia, unspecified; E11.9 Type 2 diabetes mellitus without complications; I10 Essential (primary) hypertension; Z79.84 Long term (current) use of oral hypoglycemic drugs; Z20.822 Contact with and (suspected) exposure to COVID-19
CPT/HCPCS: 0240U; 71045; 80053; 83605; 84484; 85025; 87040; 99285; 36415; J0696; J3490; J7611; J7620

== ENCOUNTER 2023-07-02 08:19 | Outpatient (CLI) | payer OTHER | END 2023-07-02 08:20 | disposition home or self-care (01) | LOC: RAD 08:19 | PROVIDERS: ATTEND Physician Assistant Medical | DX: R13.10 Dysphagia, unspecified (principal); R63.4 Abnormal weight loss; K44.9 Diaphragmatic hernia without obstruction or gangrene; K22.89 Other specified disease of esophagus | CPT/HCPCS: 74220 ==

== ENCOUNTER 2023-07-27 02:57 | Observation (INO) | payer MEDICARE, OTHER ==
[2023-07-27 04:20] LABS: #Eosinphils 0.1 thou/uL (0.0-0.7); #Monocytes 0.5 thou/uL (0.11-0.59); #Neutrophils 4.8 thou/uL (1.40-6.50); %Basophils 0.4 % (0.0-1.0); %Eosinophils 1.3 % (0.0-10.0); %Lymphocytes 24.4 % (21.0-51.0); %Monocytes 6.5 % (0.0-10.0); Hematocrit 37.4 % (36.0-47.0); Hemoglobin 11.8 g/dL (12.0-16.0); Mean Corpuscular HGB CONC 31.6 g/dL (32.0-36.0); Mean Corpuscular Hemoglobin 27.1 pg (27.0-31.0); Platelet Count 235 10x3/uL (130-400); RBC Distribution Width 15.7 % (11.5-14.5); Red Blood Cell (RBC) Count 4.35 mill/uL (4.20-5.40); White Blood Cell (WBC) Count 7.1 10x3/uL (4.8-10.8)
[2023-07-27 04:45] LABS: ALT (SGPT) 16 U/L (8-55); AST (SGOT) 22 U/L (5-34); Albumin 4.3 g/dL (3.4-4.8); Alkaline Phosphatase 89 U/L (40-110); Anion Gap 14 mmol/L (10-20); BUN (Urea Nitrogen) 14 mg/dL (9.8-20.1); Bilirubin, Total 0.3 mg/dL (0.2-1.2); Calc. Creatinine Clearance 0 mL/min (70-130); Calcium 10.5 mg/dL (7.8-10.44); Carbon Dioxide 30 mmol/L (23-31); Chloride 100 mmol/L (98-107); Estimated GFR 71; Globulin 3.3 g/dL (2.4-3.5); Glucose 141 mg/dL (83-110); Magnesium 1.9 mg/dL (1.6-2.6); Potassium 3.6 mmol/L (3.5-5.1); Protein, Total 7.6 g/dL (5.8-8.1); Sodium 140 mmol/L (136-145)
[2023-07-27 04:48] LABS: Troponin I 0.012 ng/mL (< 0.028)
[2023-07-27] MEDS ORDERED: Meclizine HCl 25 MG TAB ONE ×2 (06:15→14:22)
[2023-07-27] MEDS ORDERED: Bisacodyl 5 MG TAB PO PRN (07:21)
[2023-07-27] MEDS ORDERED: Ondansetron PF 4 MG/2 ML Vial IVP PRN (07:21)
[2023-07-27] MEDS ORDERED: Loperamide HCl 2 MG CAP PO PRN ×2 (07:21)
[2023-07-27] MEDS ORDERED: Acetaminophen 650 MG Suppository PR PRN (07:21)
[2023-07-27] MEDS ORDERED: Ondansetron ODT 4 MG TAB PO PRN (07:21)
[2023-07-27] MEDS ORDERED: Acetaminophen 325 MG TAB PO PRN (07:21)
[2023-07-27] MEDS ORDERED: Senokot S 8.6-50 MG TAB PO PRN (07:21)
[2023-07-27] MEDS ORDERED: Labetalol HCl 100 MG/20 ML VIAL SLOW IVP PRN (08:20)
[2023-07-27] MEDS ORDERED: Famotidine 20 MG TAB PO SCH (09:00)
[2023-07-27] MEDS ORDERED: Aspirin 81 mg Enteric Coated Tablet PO SCH (09:00)
[2023-07-27] MEDS ORDERED: Iopamidol 370 76% 100 ML VIAL ONE (09:13)
[2023-07-27] MEDS: Nebivolol HCl 5 MG TAB PO SCH (09:38)
[2023-07-27] MEDS: Amlodipine 5 MG TAB PO SCH (09:38)
[2023-07-27 09:39] VITALS: BMI 33.8
[2023-07-27] MEDS ORDERED: Aspirin 300 MG Suppository ONE (09:41)
[2023-07-27] MEDS ORDERED: Pantoprazole 40 MG VIAL ONE (09:41)
[2023-07-27] MEDS: Pantoprazole 40 MG VIAL IVP SCH (09:50)
[2023-07-27] MEDS: Aspirin 300 MG Suppository PR SCH (09:50)
[2023-07-27] MEDS ORDERED: ALPRAZolam 0.25 MG TAB PO PRN (13:44)
[2023-07-27] MEDS ORDERED: Ondansetron ODT 4 MG TAB PO SCH (13:45)
[2023-07-27] MEDS ORDERED: Ondansetron ODT 4 MG TAB ONE (14:22)
[2023-07-27] MEDS: Meclizine HCl 25 MG TAB PO SCH ×2 (14:30→21:03)
[2023-07-27] MEDS: metFORMIN XR 500 MG TAB PO SCH (17:22)
[2023-07-27] MEDS: Mometasone 200 MCG/Formoterol 5 MCG 120 PUFF INHALER INH SCH (18:45)
[2023-07-27] MEDS ORDERED: Atorvastatin Calcium 40 MG TAB PO SCH (21:00)
[2023-07-27] MEDS: Ondansetron ODT 4 MG TAB PO SCH (21:03)
[2023-07-28] MEDS: Ondansetron ODT 4 MG TAB PO SCH ×2 (03:30→10:26)
[2023-07-28] MEDS: Meclizine HCl 25 MG TAB PO SCH (05:12)
[2023-07-28 06:20] LABS: Anion Gap 14 mmol/L (10-20); BUN (Urea Nitrogen) 12 mg/dL (9.8-20.1); Calc. Creatinine Clearance 63 mL/min (70-130); Calcium 9.9 mg/dL (7.8-10.44); Carbon Dioxide 26 mmol/L (23-31); Cardiac Risk 6.2 (Less than 4.5); Chloride 102 mmol/L (98-107); Cholesterol 181 mg/dl (< 200 Desired); Estimated GFR 60; Glucose 130 mg/dL (83-110); HDL Cholesterol 29 mg/dL (>60 Neg Risk); LDL Cholesterol, Calculated 93 mg/dL; Potassium 4.1 mmol/L (3.5-5.1); Sodium 138 mmol/L (136-145); Triglycerides 296 mg/dL (Less than 150)
[2023-07-28] MEDS: Mometasone 200 MCG/Formoterol 5 MCG 120 PUFF INHALER INH SCH (08:06)
[2023-07-28] MEDS: Pantoprazole 40 MG VIAL IVP SCH (10:26)
[2023-07-28] MEDS: Aspirin 300 MG Suppository PR SCH (10:26)
[2023-07-28] MEDS: Nebivolol HCl 5 MG TAB PO SCH (10:29)
[2023-07-28] MEDS: Amlodipine 5 MG TAB PO SCH (10:29)
[2023-07-28] MEDS: metFORMIN XR 500 MG TAB PO SCH (10:29)
[2023-07-28 12:43] VITALS: BP 145/65; TEMP 98.2
== END 2023-07-28 13:35 | disposition home or self-care (01) ==
LOC: ERS 02:57 → SUATTDRO 02:57 → ERHOLD 07:21 → 2SE 18:14
PROVIDERS: ADMIT Family Medicine; ATTEND Family Medicine
DX: R42 Dizziness and giddiness (principal); I10 Essential (primary) hypertension; E78.5 Hyperlipidemia, unspecified; E11.9 Type 2 diabetes mellitus without complications; K21.9 Gastro-esophageal reflux disease without esophagitis; Z79.84 Long term (current) use of oral hypoglycemic drugs; Z79.899 Other long term (current) drug therapy; Z79.82 Long term (current) use of aspirin; Z96.651 Presence of right artificial knee joint; Z88.8 Allergy status to other drugs, medicaments and biological substances; Z88.2 Allergy status to sulfonamides; Z88.7 Allergy status to serum and vaccine; Z91.018 Allergy to other foods
CPT/HCPCS: 70496; 70498; 70551; 71045; 80048; 80061; 82962; 83735; 84484; 93005; 94640 ×2; 96372; 96374; 97110; 97116; 97530; 99285; G0378 ×3; 36415; 36416; 80053; 84443; 85025; C9113; J1650; Q0162; Q9967

== ENCOUNTER 2023-08-11 10:01 | Emergency (ER) | payer MEDICARE ==
[2023-08-11 10:42] LABS: #Eosinphils 0.2 thou/uL (0.0-0.7); #Monocytes 0.4 thou/uL (0.11-0.59); #Neutrophils 6.6 thou/uL (1.40-6.50); %Basophils 0.3 % (0.0-1.0); %Lymphocytes 17.1 % (21.0-51.0); %Neutrophils 75.3 % (42.0-75.0); Hemoglobin 11.9 g/dL (12.0-16.0); Mean Corpuscular HGB CONC 31.3 g/dL (32.0-36.0); Mean Corpuscular Hemoglobin 27.4 pg (27.0-31.0); Mean Corpuscular Volume 87.6 fl (78.0-98.0); Mean Platelet Volume 10.8 fL (7.4-10.4); Platelet Count 280 10x3/uL (130-400); RBC Distribution Width 15.3 % (11.5-14.5); Red Blood Cell (RBC) Count 4.34 mill/uL (4.20-5.40); White Blood Cell (WBC) Count 8.8 10x3/uL (4.8-10.8)
[2023-08-11 11:05] LABS: ALT (SGPT) 10 U/L (8-55); AST (SGOT) 19 U/L (5-34); Albumin 4.3 g/dL (3.4-4.8); Alkaline Phosphatase 85 U/L (40-110); Anion Gap 17 mmol/L (10-20); BUN (Urea Nitrogen) 14 mg/dL (9.8-20.1); Bilirubin, Total 0.6 mg/dL (0.2-1.2); Calc. Creatinine Clearance 0 mL/min (70-130); Calcium 9.9 mg/dL (7.8-10.44); Carbon Dioxide 23 mmol/L (23-31); Chloride 104 mmol/L (98-107); Estimated GFR 54; Globulin 3.5 g/dL (2.4-3.5); Glucose 155 mg/dL (83-110); Potassium 3.3 mmol/L (3.5-5.1); Protein, Total 7.8 g/dL (5.8-8.1); Sodium 141 mmol/L (136-145)
[2023-08-11] MEDS ORDERED: Iopamidol-370 76% 500 ML MDV (1 ML CHARGE) ONE (11:41)
[2023-08-11 12:45] LABS: Troponin I Less than 0.010 ng/mL (< 0.028)
== END 2023-08-11 13:12 | disposition home or self-care (01) ==
LOC: ERS 10:01
DX: K59.00 Constipation, unspecified (principal); E78.5 Hyperlipidemia, unspecified; E11.9 Type 2 diabetes mellitus without complications; I10 Essential (primary) hypertension; Z79.84 Long term (current) use of oral hypoglycemic drugs; Z79.899 Other long term (current) drug therapy
CPT/HCPCS: 36415; 74022; 74177; 80053; 83690; 84484; 85025; 96360; 96361; Q9967

== ENCOUNTER 2024-01-31 10:59 | Outpatient (CLI) | payer OTHER | END 2024-01-31 11:00 | disposition home or self-care (01) | LOC: BICMAMMO 10:59 | PROVIDERS: ATTEND Family Medicine | DX: Z12.31 Encounter for screening mammogram for malignant neoplasm of breast (principal); Z80.3 Family history of malignant neoplasm of breast | CPT/HCPCS: 77063; 77067 ==

== ENCOUNTER 2024-12-22 23:44 | Emergency (ER) | payer OTHER ==
[2024-12-23] MEDS ORDERED: Benzonatate 100 MG CAP ONE (02:59)
[2024-12-23] MEDS ORDERED: Ipratropium/Albuterol 3 ML NEB ONE (03:22)
== END 2024-12-23 02:45 | disposition home or self-care (01) ==
LOC: ERS 23:44
DX: J06.9 Acute upper respiratory infection, unspecified (principal); H61.23 Impacted cerumen, bilateral; J18.9 Pneumonia, unspecified organism; E11.9 Type 2 diabetes mellitus without complications; I10 Essential (primary) hypertension; E78.5 Hyperlipidemia, unspecified
CPT/HCPCS: 71045; J7620

== ENCOUNTER 2025-08-21 22:50 | Emergency (ER) | payer OTHER ==
[2025-08-21] MEDS ORDERED: Magnesium 2 GM/50 ML BAG (IN WATER) ONE (23:51)
[2025-08-21 23:58] LABS: #Basophils Less than 0.03 10x3/uL (0.0-0.2); #Eosinophils 0.15 10x3/uL (0.0-0.7); #Monocytes 0.51 10x3/uL (0.11-0.59); #Neutrophils 3.81 10x3/uL (1.40-6.50); %Basophils 0.3 % (0.0-1.0); %Eosinophils 2.3 % (0.0-10.0); %Lymphocytes 29.8 % (21.0-51.0); %Monocytes 7.9 % (0.0-10.0); %Neutrophils 59.4 % (42.0-75.0); Hematocrit 33.7 % (36.0-47.0); Hemoglobin 10.7 g/dL (12.0-16.0); Mean Corpuscular Hemoglobin 27.4 pg (27.0-31.0); Mean Corpuscular Volume 86.2 fL (78.0-98.0); Platelet Count 178 10x3/uL (130-400); Red Blood Cell (RBC) Count 3.91 mill/uL (4.20-5.40); White Blood Cell (WBC) Count 6.42 10x3/uL (4.8-10.8)
[2025-08-22 00:22] LABS: ALT (SGPT) 9 U/L (Less than 34); AST (SGOT) 20 U/L (11-34); Albumin 3.6 g/dL (3.1-4.5); Alkaline Phosphatase 101 U/L (40-110); Anion Gap 16 mmol/L (10-20); BUN (Urea Nitrogen) 17 mg/dL (9.8-20.1); Bilirubin, Total 0.2 mg/dL (0.3-1.2); Calc. Creatinine Clearance 0 mL/min (70-130); Calcium 9.6 mg/dL (7.8-10.44); Carbon Dioxide 20 mmol/L (23-31); Chloride 105 mmol/L (98-107); Globulin 3.3 g/dL (2.4-3.5); Glucose 258 mg/dL (83-110); Lipase 33 U/L (8-78); Magnesium 1.6 mg/dL (1.6-2.6); Potassium 3.6 mmol/L (3.5-5.1); Sodium 137 mmol/L (136-145)
== END 2025-08-22 01:32 | disposition home or self-care (01) ==
LOC: ERS 22:50
DX: J45.901 Unspecified asthma with (acute) exacerbation (principal)
CPT/HCPCS: 71045; 80053; 83690; 83735; 83880; 84484; 85025; J2919; J3475; 96374; 96375